=== PATIENT | female | born 1990 | race Two or more races ===

== ENCOUNTER 2017-12-03 09:57 | Emergency (ER) | payer BC ==
[~2017-12-03] VITALS: Ht 160 cm; Wt 64.0 kg
[2017-12-03] MEDS ORDERED: IBUPROFEN 600MG TABLET PO ONE (11:45)
[2017-12-03 13:37] VITALS: BP 127/78
== END 2017-12-03 13:31 | disposition home or self-care (01) ==
LOC: ER 09:57
DX: S39.82XA Other specified injuries of lower back, initial encounter (principal); V43.92XA Unspecified car occupant injured in collision with other type car in traffic accident, initial encounter; Y93.89 Activity, other specified; Y92.89 Other specified places as the place of occurrence of the external cause; Y99.8 Other external cause status
CPT/HCPCS: 72100; 99284